=== PATIENT | male | born 1940 | race Caucasian/White ===

== ENCOUNTER → 2016-07-19 | Day surgery (SDC) | payer MEDICARE, OTHER ==
[~2016-07-19] MED LIST: ACETAMINOPHEN PO; AMLODIPINE BESY10 MG PO; ARICEPT5 MG PO; ASPIRIN325 M1 PO; KEPPRA1000 MG PO; KEPPRA500 MG PO; LEVAQUIN750 MG PO; LITE COAT ASPI325 M2 PO; METOPROLOL SUCC25 MG PO; METOPROLOL TAR25 MG PO; NORVASC PO; NORVASC10 MG PO; PROTONIX PO; TRILEPTAL PO; TRILEPTAL600 MG PO
--- NOTE | ~2016-07-19 | OR ---
Unit #: [id number] #: [id number] Patient: FABIENNE BUSBY [id number] [address] [place], [place] [address] [id number] O MR#: [id number] NAME: FABIENNE BUSBY. ROOM: Date of Procedure: 07/19/2016 Admission Date: 07/19/2016 Surgeon: Memo Ryan M.D. : 1940 Attending Physician: Memo Ryan M.D. Primary Care Physician: Prerna Nicholson M.D. OPERATIVE REPORT PREOPERATIVE DIAGNOSES The patient presented with a history of dyspepsia and dysphagia. 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 PROCEDURES PERFORMED 1. Upper gastrointestinal endoscopy and biopsy. 2. Upper gastrointestinal endoscopy and dilation. POSTOPERATIVE DIAGNOSES 1. 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 The latter was dilated using a 15 to 18 mm TTS balloon. 2. There was mild diffuse prepyloric antral gastritis. 3. Medium-sized hiatus hernia. 4. Rest of the examination up to third part of the duodenum was normal. RECOMMENDATIONS 1. The patient will continue on pantoprazole 40 mg p.o. daily. 2. He will require a repeat dilation in 2 to 3 months up to 20 mm. SEDATION USED MAC. DESCRIPTION OF PROCEDURE Following detailed explanation of the potential risks and complications of an upper endoscopy, namely perforation, bleeding, and complications related to sedation, the patient was brought to GI lab and laid in the left lateral decubitus position. Lubricated tip of the Olympus video upper endoscope was passed through the bite block into the proximal esophagus under direct vision. The entire esophageal mucosa was examined. The patient was noted to have distal esophageal benign tight stricture with a classic appearance. There was no esophagitis. In addition, a medium-sized hiatus hernia was noted. The scope was then advanced into the gastric cavity. Mucosa of the fundus, body, and antrum examined and diffuse prepyloric antral erythema and erythematous streaks noted indicating antral gastritis. Pylorus was intubated with visualization of the normal duodenal bulb and second and third part of the duodenum. Upon withdrawal and retroflexion, incisura, cardia, and greater curve were examined and biopsy was obtained from the antrum for CLOtest. The scope was then withdrawn into the distal esophagus. A 15 to 18 mm TTS balloon was passed through the accessory channel of the scope and step-up dilation of the distal esophageal stricture was done. Excellent dilation was achieved. Minimal bleeding was noted. The area was thoroughly washed Unit #: [id number] #: [id number] Patient: FABIENNE BUSBY with water. Good hemostasis was achieved. The scope was then withdrawn all the way up to pharynx. No additional findings noted. The patient tolerated the procedure without any postprocedure complications. Dictated by... Khushi Carlson/fito TD: 07/19/2016 08:14 JOB #: [id number] OPERATIVE REPORT Page 1 of 1 X Memo Ryan MD X PROCEDURE OPERATIVE NOTE
== END | disposition home or self-care (01) ==
LOC: COPS 06:04
DX: K22.2 Esophageal obstruction (principal); K29.70 Gastritis, unspecified, without bleeding; K44.9 Diaphragmatic hernia without obstruction or gangrene; K21.9 Gastro-esophageal reflux disease without esophagitis; J44.9 Chronic obstructive pulmonary disease, unspecified; Z86.73 Personal history of transient ischemic attack (TIA), and cerebral infarction without residual deficits; Z87.891 Personal history of nicotine dependence; Z88.0 Allergy status to penicillin; Z79.82 Long term (current) use of aspirin; Z79.899 Other long term (current) drug therapy; Z98.890 Other specified postprocedural states
CPT/HCPCS: 87077

== ENCOUNTER → 2016-09-13 | Day surgery (SDC) | payer MEDICARE, OTHER ==
--- NOTE | ~2016-09-13 | OR ---
Unit #: [id number] #: [id number] Patient: FABIENNE BUSBY [id number] [address] [address] [id number] O MR#: [id number] NAME: FABIENNE BUSBY. ROOM: Date of Procedure: 09/13/2016 Admission Date: 09/13/2016 Surgeon: Memo Ryan M.D. : 1940 Attending Physician: Memo Ryan M.D. Referring Physician: Memo Ryan M.D. Primary Care Physician: Prerna Nicholson M.D. OPERATIVE REPORT PRIMARY CARE PHYSICIAN Prerna Nicholson M.D. PREOPERATIVE DIAGNOSES Dysphagia and dyspepsia. PROCEDURES PERFORMED 1. Upper gastrointestinal endoscopy and biopsy. 2. Upper gastrointestinal endoscopy and dilation with a TTS balloon. POSTOPERATIVE DIAGNOSES For upper endoscopy: 1. 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 The latter was dilated using a 15 to 18 mm TTS balloon. 2. Medium-sized hiatus hernia. 3. Prepyloric antral [id number] gastritis with erosions in the antral area. 4. Mild focal patchy erosive duodenitis. 5. Rest of the examination up to third part of duodenum was normal. RECOMMENDATIONS Continue on pantoprazole 40 mg p.o. daily. The patient will be followed up in the office in 6 to 8 weeks' time. He will require a repeat dilation with 18- to -20 mm TTS balloon next time, this is being scheduled. SEDATION USED MAC. DESCRIPTION OF PROCEDURE Following detailed explanation of potential risks and complications of an upper endoscopy, namely perforation, bleeding, and complications related to sedation, the patient was brought to GI lab and laid in the left lateral decubitus position. Lubricated tip of the Olympus video upper endoscope was passed through the bite block into the proximal esophagus under direct vision. The entire esophageal mucosa was examined. 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 The inner diameter of the stricture was about 12 mm. The scope was then advanced into the gastric cavity and a medium-sized hiatus hernia was traversed. Mucosa of the fundus, body, and antrum was examined. [id number] prepyloric antral erosions and erythema was noted indicating antral gastritis. Pylorus was intubated with visualization of the duodenal bulb. The latter was noted to have mild Unit #: [id number] #: [id number] Patient: FABIENNE BUSBY focal patchy erosive duodenitis. Second and third part of the duodenum were normal. Upon withdrawal and retroflexion, incisura, cardia, and greater curve examined and a biopsy obtained from the antrum for CLOtest. The scope was then withdrawn in the distal esophagus. A 15 to 18 mm TTS balloon was passed through the accessory channel of the scope and step-up dilation of distal esophageal stricture was done. Minimal bleeding was noted after effective dilation. The scope was then withdrawn all the way up to pharynx. No additional findings noted. The patient tolerated the procedure without any postprocedure complications. Dictated by... Khushi Carlson/fito TD: 09/13/2016 16:28 JOB #: [id number] CC: Prerna Nicholson M.D. OPERATIVE REPORT Page 1 of 1 X Memo Ryan MD X PROCEDURE OPERATIVE NOTE
== END | disposition home or self-care (01) ==
LOC: COPS 09:45
DX: K22.2 Esophageal obstruction (principal); K44.9 Diaphragmatic hernia without obstruction or gangrene; K25.9 Gastric ulcer, unspecified as acute or chronic, without hemorrhage or perforation; K29.80 Duodenitis without bleeding; J44.9 Chronic obstructive pulmonary disease, unspecified; K21.9 Gastro-esophageal reflux disease without esophagitis; I10 Essential (primary) hypertension; F17.210 Nicotine dependence, cigarettes, uncomplicated; Z86.73 Personal history of transient ischemic attack (TIA), and cerebral infarction without residual deficits; Z88.0 Allergy status to penicillin; Z79.82 Long term (current) use of aspirin; Z79.899 Other long term (current) drug therapy; Z98.890 Other specified postprocedural states
CPT/HCPCS: 87077